=== PATIENT | female | born 1985 | race Caucasian/White ===

== ENCOUNTER 2016-07-10 14:33 | Emergency (ER) | payer BC ==
[2016-07-10] MEDS ORDERED: Sodium Chloride 0.9% 1,000 ML IV ONE (14:43)
[2016-07-10] MEDS ORDERED: Morphine 2 MG/ML Syringe IVPUSH ONE (14:43)
[2016-07-10] MEDS ORDERED: Ketorolac 30 MG/ML SDV IVPUSH ONE (14:43)
[2016-07-10] MEDS ORDERED: Ondansetron 4 MG/2 ML SDV IVPUSH ONE (14:43)
[2016-07-10 15:21] LABS: CHLORIDE,CL 108 mmol/L (98-110); SODIUM,NA 139 mmol/L (136-146)
[2016-07-10] MEDS ORDERED: fentaNYL 100 MCG/2 ML SDV IVPUSH ONE (15:47)
--- NOTE | 2016-07-10 18:01 | EDM.PDOC ---
ED HPI LOWER BACK PAIN/INJURY - General Chief Complaint: Back Pain or Injury Stated Complaint: BACK PAIN Time Seen by Provider: 07/10/16 14:40 Source of Information: Reports: Patient History Limitations: Reports: No limitations - History of Present Illness INITIAL COMMENTS - FREE TEXT/NARRATIVE: History of present illness: [] Review of systems: As per history of present illness and below otherwise all systems reviewed and negative. Past medical history: As per history of present illness and as reviewed below otherwise noncontributory. Surgical history: As per history of present illness and as reviewed below otherwise noncontributory. Social history: No reported history of drug or alcohol abuse. Family history: As per history of present illness and as reviewed below otherwise noncontributory. Physical exam: HEENT: Atraumatic, normocephalic, pupils reactive, negative for conjunctival pallor or scleral icterus, mucous membranes moist, throat clear, neck supple, nontender, trachea midline. Lungs: Clear to auscultation, breath sounds equal bilaterally, chest nontender. Heart: S1S2, regular, negative for clicks, rubs, or JVD. Abdomen: Soft, nondistended, nontender. Negative for masses or hepatosplenomegaly. Negative for costovertebral tenderness. Pelvis: Stable nontender. Genitourinary: Deferred. Rectal: Deferred. Extremities: Atraumatic, negative for cords or calf pain. Neurovascular unremarkable. Neuro: Awake, alert, oriented. Cranial nerves II through XII unremarkable. Cerebellum unremarkable. Motor and sensory unremarkable throughout. Exam nonfocal. Diagnostics: [BC, CMP, EKG, troponin, CT of the thoracic spine] Therapeutics: [] Impression: [Back Pain] Plan: [Muscle relaxer, [id number] pain medication, followup with primary care provider] Definitive disposition and diagnosis as appropriate pending reevaluation and review of above. - Related Data Allergies/ADRs: Allergies Allergy/AdvReac Type Severity Reaction Status Date / Time Androgenic Anabolic Steroid Allergy Anaphylactic Verified 07/10/16 14:51 Shock Sulfa (Sulfonamide Allergy Other Verified 07/10/16 14:51 Antibiotics) venom-honey bee Allergy Anaphylactic Verified 07/10/16 14:51 Shock Home Meds: Home Meds Atenolol 25 mg PO DAILY #10 tablet 05/30/16 [Rx] Methimazole [Tapazole] 10 mg PO TID #30 tablet 05/30/16 [Rx] Orphenadrine [Norflex] 100 mg PO BID #30 tab.er 07/10/16 [Rx] Past Medical History HEENT History: Reports: None Cardiovascular History: Reports: Hypertension, Other (see below) Other Cardiovascular History: hypertension Respiratory History: Reports: Intubation, previous Gastrointestinal History: Reports: None 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: Neurological History: Reports: Migraines Endocrine/Metabolic History: Reports: Diabetes, gestational - Infectious Disease History Infectious Disease History: Reports: Chicken pox, Shingles - Past Surgical History HEENT Surgical History: Reports: Adenoidectomy, Tonsillectomy Cardiovascular Surgical History: Reports: None Respiratory Surgical History: Reports: None GI Surgical History: Reports: Cholecystectomy Neurological Surgical History: Reports: None Social & Family History - Family History HEENT: Reports: Allergic rhinitis, Cataract Cardiac: Reports: High cholesterol, Hypertension OBGYN: Reports: Musculoskeletal: Reports: Back pain, chronic Endocrine/Metabolic: Reports: Other (see below) Other Endocrine/Metabolic Family History: mother has thyroid issues; patient wasn't sure what exactly it was - Tobacco Use Smoking Status *Q: Never Smoker Second Hand Smoke Exposure: No - Caffeine Use Caffeine Use: Reports: Coffee Caffeine Use Comment: rarely - Recreational Drug Use Recreational Drug Use: No ED ROS GENERAL - Review of Systems Review Of Systems: See Below (See history of present illness) ED EXAM,LOWER BACK PAIN/INJURY - Physical Exam Exam: See Below (See history of present illness) Departure - Departure Time of Disposition: 18:05 Disposition: Home, Self-Care 01 Condition: good Clinical Impression: Acute thoracic back pain Qualifiers: Back pain laterality: left Qualified Code(s): M54.6 - Pain in thoracic spine Instructions: Back Pain, Adult, [id number], Muscle Strain, [id number] Forms: ED Department Discharge Additional Instructions: The following information is given to patients seen in the emergency department who are being discharged to home. This information is to outline your options for follow-up care. We provide all patients seen in our emergency department with a follow-up referral. The need for follow-up, as well as the timing and circumstances, are variable depending upon the specifics of your emergency department visit. If you don't have a primary care physician on staff, we will provide you with a referral. We always advise you to contact your personal physician following an emergency department visit to inform them of the circumstance of the visit and for follow-up with them and/or the need for any referrals to a consulting specialist. The emergency department will also refer you to a specialist when appropriate. This referral assures that you have the opportunity for follow-up care with a specialist. All of these measure are taken in an effort to provide you with optimal care, which includes your follow-up. Under all circumstances we always encourage you to contact your private physician who remains a resource for coordinating your care. When calling for follow-up care, please make the office aware that this follow-up is from your recent emergency room visit. If for any reason you are refused follow-up, please contact the [facility] Emergency Department at and asked to speak to the emergency department charge nurse. Take medication as directed Followup with primary care provider one to 2 days Return to ED as needed as discussed
[2016-07-10 18:50] VITALS: BP 121/68
--- NOTE | 2016-07-13 16:26 | CT ---
EXAM DATE: 07/10/16 PATIENT'S AGE: 31 Patient: ISIAH LYNN Facility: [place], [place] Site . Site : [id number] Study: CT Spine Thoracic [id number]/[id number] 4:59:12 PM Ordering Physician: Doctor Cruz Final Report: INDICATION: pain INDICATION: Back pain. TECHNIQUE: 2 mm axial imaging has been performed through the thoracic spine. Sagittal and coronal reconstructions have been obtained. FINDINGS: There is no fracture visualized of the thoracic spine. There is some endplate irregularity and mild depression of the posterior endplate of the lower thoracic spine T8 level. This may represent a atypical Schmorl`s node. There is some associated endplate spurring at this level. This is favored to be chronic. Posterior elements appear to be intact of the thoracic spine. No abnormal paraspinal fluid or thickening is seen. The adjacent lungs are free of infiltrates. Incidental calcified granuloma near the apex on the left is noted. IMPRESSION: No acute fracture is seen of the thoracic spine. There is some irregularity of the endplate at the T8 level posteriorly in the inferior endplate. This is favored to be chronic. There is some associated endplate spurring. The posterior elements appear relatively well preserved. Dictated by Cristopher Muhammad MD @ 07/10/2016 5:46:49 PM Dictated by: Cristopher Muhammad MD @ 07/10/2016 17:47:07 (Electronic Signature) Report Signed by Proxy and Original Signed Document filed in the Medical Record. MTDD
== END 2016-07-10 18:08 | disposition home or self-care (01) ==
LOC: MW.ED 14:33
DX: M54.6 Pain in thoracic spine (principal); I10 Essential (primary) hypertension; Z88.8 Allergy status to other drugs, medicaments and biological substances; Z79.899 Other long term (current) drug therapy; Z90.49 Acquired absence of other specified parts of digestive tract; Z98.890 Other specified postprocedural states; Z88.2 Allergy status to sulfonamides; Z91.030 Bee allergy status
CPT/HCPCS: 36415; 72128; 80053; 81025; 84484; 85025; 93005; 96361; 96372; 96374; 96375; 99284; J1885; J2270; J2360; J2405; J7040; 99283

== ENCOUNTER → 2016-07-20 | Outpatient (CLI) | payer BC | END | disposition home or self-care (01) | LOC: MW.LAB 13:42 | PROVIDERS: ATTEND Internal Medicine Endocrinology, Diabetes & Metabolism | DX: E03.9 Hypothyroidism, unspecified (principal) | CPT/HCPCS: 36415; 84439; 84443; 84481 ==

== ENCOUNTER → 2016-07-29 | Outpatient (CLI) | payer BC | END | disposition home or self-care (01) | LOC: MW.LAB 08:22 | PROVIDERS: ATTEND Internal Medicine Endocrinology, Diabetes & Metabolism | DX: E05.00 Thyrotoxicosis with diffuse goiter without thyrotoxic crisis or storm (principal) | CPT/HCPCS: 36415; 84439; 84443; 84481 ==

== ENCOUNTER → 2016-08-05 | Outpatient (CLI) | payer BC | LOC: MW.LAB 08:10 | PROVIDERS: ATTEND Internal Medicine Endocrinology, Diabetes & Metabolism | DX: E05.00 Thyrotoxicosis with diffuse goiter without thyrotoxic crisis or storm (principal) | CPT/HCPCS: 36415; 84439; 84443; 84481 ==

== ENCOUNTER 2016-09-04 19:26 | Emergency (ER) | payer BC ==
--- NOTE | 2016-09-04 19:55 | EDM.PDOC ---
ED HPI GENERAL MEDICAL PROBLEM - General Chief Complaint: Gastrointestinal Problem Stated Complaint: FLU SYMPTOMS & Time Seen by Provider: 09/04/16 19:30 Source of Information: Reports: Patient History Limitations: Reports: No Limitations - History of Present Illness INITIAL COMMENTS - FREE TEXT/NARRATIVE: History of present illness: [31-year-old female comes in complaining of nausea and vomiting. Patient knowledge is that she has had any history of vomiting with her first and she feels that this could either be significant amounts of nausea vomiting from and or some possible viral syndrome.] Review of systems: As per history of present illness and below otherwise all systems reviewed and negative. Past medical history: As per history of present illness and as reviewed below otherwise noncontributory. Surgical history: As per history of present illness and as reviewed below otherwise noncontributory. Social history: No reported history of drug or alcohol abuse. Family history: As per history of present illness and as reviewed below otherwise noncontributory. Physical exam: HEENT: Atraumatic, normocephalic, pupils reactive, negative for conjunctival pallor or scleral icterus, mucous membranes moist, throat clear, neck supple, nontender, trachea midline. Lungs: Clear to auscultation, breath sounds equal bilaterally, chest nontender. Heart: S1S2, regular, negative for clicks, rubs, or JVD. Abdomen: Soft, nondistended, nontender. Negative for masses or hepatosplenomegaly. Negative for costovertebral tenderness. Pelvis: Stable nontender. Genitourinary: Deferred. Rectal: Deferred. Extremities: Atraumatic, negative for cords or calf pain. Neurovascular unremarkable. Neuro: Awake, alert, oriented. Cranial nerves II through XII unremarkable. Cerebellum unremarkable. Motor and sensory unremarkable throughout. Exam nonfocal. Global assessment was benign save is noted in the subjective complaint above patient presents ED for approximately 2 hours without any nausea or vomiting tolerating IV fluids well Diagnostics: [] Therapeutics: [IV fluid, Zofran 8 mg] Impression: [Nausea and vomiting] Plan: [Zofran] Definitive disposition and diagnosis as appropriate pending reevaluation and review of above. - Related Data Allergies Allergy/AdvReac Type Severity Reaction Status Date / Time Sulfa (Sulfonamide Allergy Other Verified 09/04/16 19:49 Antibiotics) venom-honey bee Allergy Anaphylactic Verified 09/04/16 19:49 Shock Home Meds: Home Meds Atenolol 25 mg PO DAILY #10 tablet 05/30/16 [Rx] Methimazole [Tapazole] 10 mg PO TID #30 tablet 05/30/16 [Rx] Orphenadrine [Norflex] 100 mg PO BID #30 tab.er 07/10/16 [Rx] methylPREDNISolone [Medrol] 4 mg PO ASDIRECTED #21 dospk 07/10/16 [Rx] Ondansetron HCl [Zofran] 8 mg PO TID #30 tablet 09/04/16 [Rx] Past Medical History HEENT History: Reports: None Cardiovascular History: Reports: Hypertension, Other (See Below) Other Cardiovascular History: hypertension Respiratory History: Reports: Intubation, Previous Gastrointestinal History: Reports: None 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: Neurological History: Reports: Migraines Endocrine/Metabolic History: Reports: Diabetes, Gestational - Infectious Disease History Infectious Disease History: Reports: Chicken Pox, Shingles - Past Surgical History HEENT Surgical History: Reports: Adenoidectomy, Tonsillectomy Cardiovascular Surgical History: Reports: None Respiratory Surgical History: Reports: None GI Surgical History: Reports: Cholecystectomy Neurological Surgical History: Reports: None Social & Family History - Family History HEENT: Reports: Allergic Rhinitis, Cataract Cardiac: Reports: High Cholesterol, Hypertension OBGYN: Reports: Musculoskeletal: Reports: Back pain, Chronic Endocrine/Metabolic: Reports: Other (See Below) Other Endocrine/Metabolic Family History: mother has thyroid issues; patient wasn't sure what exactly it was - Tobacco Use Smoking Status *Q: Never Smoker Second Hand Smoke Exposure: No - Caffeine Use Caffeine Use: Reports: Coffee Caffeine Use Comment: rarely - Recreational Drug Use Recreational Drug Use: No ED ROS GENERAL - Review of Systems Review Of Systems: See Below (See history of present illness) ED EXAM, GENERAL - Physical Exam Exam: See Below (See history of present illness) Course - Vital Signs Last Recorded V/S: Last Vital Signs Temp 36.8 C 09/04/16 19:50 Pulse 80 09/04/16 19:50 Resp 16 09/04/16 19:50 BP 139/83 09/04/16 19:50 Pulse Ox 97 09/04/16 19:50 - Orders/Labs/Meds Labs: Laboratory Tests 09/04/16 09/04/16 Range/Units 20:29 20:29 WBC 9.95 (4.0-11.0) K/uL RBC 5.53 (4.30-5.90) M/uL Hgb 16.5 H (12.0-16.0) g/dL Hct 44.8 (36.0-46.0) % MCV 81.0 (80.0-98.0) fL MCH 29.8 (27.0-32.0) pg MCHC 36.8 (31.0-37.0) g/dL RDW Std Deviation 36.2 (28.0-62.0) fl RDW Coeff of Mary 12 (11.0-15.0) % Plt Count 166 (150-400) K/uL MPV 10.30 (7.40-12.00) fL Neut % (Auto) 78.0 (48.0-80.0) % Lymph % (Auto) 13.7 L (16.0-40.0) % Storey % (Auto) 7.2 (0.0-15.0) % Eos % (Auto) 1.0 (0.0-7.0) % Baso % (Auto) 0.1 (0.0-1.5) % Neut # (Auto) 7.8 H (1.4-5.7) K/uL Lymph # (Auto) 1.4 (0.6-2.4) K/uL Storey # (Auto) 0.7 (0.0-0.8) K/uL Eos # (Auto) 0.1 (0.0-0.7) K/uL Baso # (Auto) 0.0 (0.0-0.1) K/uL Nucleated RBC % 0.0 /100WBC Nucleated RBCs # 0 K/uL Sodium 137 (136-146) mmol/L Potassium 3.7 (3.5-5.1) mmol/L Chloride 108 (98-110) mmol/L Carbon Dioxide 17 L (21-31) mmol/L BUN 10 (6.0-23.0) mg/dL Creatinine 0.7 (0.6-1.5) mg/dL Est Cr Clr Drug Dosing 131.91 mL/min Estimated GFR (MDRD) > 60.0 ml/min Glucose 97 (60-110) mg/dL Calcium 9.5 (8.8-10.8) mg/dL Total Bilirubin 0.5 (0.1-1.5) mg/dL AST 39 (5-40) IU/L ALT 68 H (8-54) IU/L Alkaline Phosphatase 80 (40-150) Total Protein 7.1 (6.0-8.0) g/dL Albumin 4.2 (3.5-5.0) g/dL Globulin 2.9 (2.0-3.5) g/dL Albumin/Globulin Ratio 1.4 (1.3-2.8) Meds: Medications Discontinued Medications Generic Name Dose Route Start Last Admin Trade Name Freq PRN Reason Stop Dose Admin Sodium Chloride 1,000 mls @ 999 mls/hr 09/04/16 20:14 09/04/16 20:37 Normal Saline IV 09/04/16 21:14 999 mls/hr STAT ONE Administration Ondansetron HCl 8 mg 09/04/16 20:14 09/04/16 20:39 Zofran IVPUSH 09/04/16 20:15 8 mg ONETIME ONE Administration Departure - Departure Time of Disposition: 21:17 Disposition: Home, Self-Care 01 Condition: good Clinical Impression: Vomiting - Discharge Information Prescriptions: Ondansetron HCl [Zofran] 8 mg PO TID #30 tablet Forms: ED Department Discharge Additional Instructions: The following information is given to patients seen in the emergency department who are being discharged to home. This information is to outline your options for follow-up care. We provide all patients seen in our emergency department with a follow-up referral. The need for follow-up, as well as the timing and circumstances, are variable depending upon the specifics of your emergency department visit. If you don't have a primary care physician on staff, we will provide you with a referral. We always advise you to contact your personal physician following an emergency department visit to inform them of the circumstance of the visit and for follow-up with them and/or the need for any referrals to a consulting specialist. The emergency department will also refer you to a specialist when appropriate. This referral assures that you have the opportunity for follow-up care with a specialist. All of these measure are taken in an effort to provide you with optimal care, which includes your follow-up. Under all circumstances we always encourage you to contact your private physician who remains a resource for coordinating your care. When calling for follow-up care, please make the office aware that this follow-up is from your recent emergency room visit. If for any reason you are refused follow-up, please contact the [facility] Emergency Department at and asked to speak to the emergency department charge nurse. Take Zofran as needed as discussed Followup with primary care provider one to 2 days Return to ED as needed as discussed
[2016-09-04] MEDS ORDERED: Ondansetron 4 MG/2 ML SDV IVPUSH ONE (20:14)
[2016-09-04] MEDS ORDERED: Sodium Chloride 0.9% 1,000 ML IV ONE (20:14)
[2016-09-04 21:06] LABS: CHLORIDE,CL 108 mmol/L (98-110); SODIUM,NA 137 mmol/L (136-146)
[2016-09-04 21:38] VITALS: BP 130/69
== END 2016-09-04 21:49 | disposition home or self-care (01) ==
LOC: MW.ED 19:26
DX: O21.9 Vomiting of pregnancy, unspecified (principal); I10 Essential (primary) hypertension; G43.909 Migraine, unspecified, not intractable, without status migrainosus; Z90.49 Acquired absence of other specified parts of digestive tract; Z88.2 Allergy status to sulfonamides; Z91.030 Bee allergy status; Z79.899 Other long term (current) drug therapy; Z98.890 Other specified postprocedural states
CPT/HCPCS: 36415; 80053; 85025; 96361; 96374; 99284; J2405; J7040